=== PATIENT | female | born 1955 | race African-American/Black ===

== ENCOUNTER 2018-04-01 12:29 | Emergency (ER) | payer OTHER ==
[2018-04-01] MEDS ORDERED: Albuterol Sulfate 2.5 mg/0.5 ml Neb ONE ×2 (13:34)
--- NOTE | 2018-04-01 15:57 | RAD ---
CHEST TWO VIEWS: 04/01/18 HISTORY: Cough and congestion. Heart size is within normal limits. Aorta is mildly tortuous. The lungs are clear of infiltrates. No significant bony findings. IMPRESSION: No active intrathoracic disease. POS: [facility]
== END 2018-04-01 15:45 | disposition home or self-care (01) ==
LOC: ERS 12:29
DX: J40 Bronchitis, not specified as acute or chronic (principal); E11.9 Type 2 diabetes mellitus without complications; Z79.4 Long term (current) use of insulin; E78.5 Hyperlipidemia, unspecified; I10 Essential (primary) hypertension; J45.909 Unspecified asthma, uncomplicated
CPT/HCPCS: 71046; 94640; J7611; J7620

== ENCOUNTER 2018-04-24 10:38 | Emergency (ER) | payer OTHER ==
[2018-04-24 11:44] LABS: #Basophils 0.1 thou/uL (0.0-0.2); #Eosinphils 0.2 thou/uL (0.0-0.7); #Lymphocytes 2.1 thou/uL (1.20-3.40); #Monocytes 0.7 thou/uL (0.11-0.59); #Neutrophils 6.4 thou/uL (1.40-6.50); %Basophils 0.6 % (0.0-1.0); %Eosinophils 2.1 % (0.0-10.0); %Lymphocytes 22.4 % (21.0-51.0); %Monocytes 7.6 % (0.0-10.0); %Neutrophils 67.4 % (42.0-75.0); Mean Corpuscular HGB CONC 30.6 g/dL (32.0-36.0); Mean Corpuscular Hemoglobin 23.2 pg (27.0-31.0); Mean Corpuscular Volume 75.9 fL (78.0-98.0); Mean Platelet Volume 12.2 fL (7.4-10.4); Platelet Count 138 thou/uL (130-400); RBC Distribution Width 13.8 % (11.5-14.5); Red Blood Cell (RBC) Count 4.75 mill/uL (4.20-5.40); White Blood Cell (WBC) Count 9.4 thou/uL (4.8-10.8)
--- NOTE | 2018-04-24 11:48 | RAD ---
CHEST TWO VIEWS: History: Cough. Comparison: Radiograph 04-01-18. FINDINGS: Lungs are clear. No pneumothorax or effusion. Cardiac silhouette and mediastinal contours are within normal limits. Mid thoracic spine spondylosis. IMPRESSION: No acute intrathoracic abnormality. POS: [facility]
[2018-04-24 12:04] LABS: ALT (SGPT) 22 U/L (8-55); AST (SGOT) 16 U/L (5-34); Albumin 3.5 g/dL (3.4-4.8); Alkaline Phosphatase 82 U/L (40-150); Anion Gap 12 mmol/L (10-20); BUN (Urea Nitrogen) 19 mg/dL (9.8-20.1); Bilirubin, Total 0.2 mg/dL (0.2-1.2); CK (CPK) 52 U/L (29-168); CKMB 0.8 ng/mL (0-6.6); Calc. Creatinine Clearance 0 mL/min (70-130); Carbon Dioxide 26 mmol/L (23-31); Chloride 102 mmol/L (98-107); Estimated GFR-MDRD 70; Glucose 405 mg/dL (80-115); Potassium 4.2 mmol/L (3.5-5.1); Protein, Total 7.5 g/dL (6.0-8.3); Sodium 136 mmol/L (136-145); Troponin I Less than 0.010 ng/mL (< 0.028)
[2018-04-24 12:10] LABS: Hypochromia MODERATE=16-30 cells (100X) (0-5/hpf); MDiff Complete? YES; Microcytosis SLIGHT = 6-15 cells (100X) (0-5/hpf); PLT Morphology Comment Appears Adequate; Polychromasia SLIGHT = 2-3 cells (100X) (0-2/hpf); Reflex for Review?? NO; Target Cells SLIGHT = 2-5 cells (100X) (0-1/hpf)
[2018-04-24] MEDS ORDERED: methylPREDNISolone Sod Succ/PF 125 MG/2 ML VIAL ONE (12:16)
--- NOTE | 2018-04-24 13:09 | CT ---
CT CHEST WITHOUT CONTRAST: History: Cough, wheezing x 3 weeks. Comparison: None. FINDINGS: Limited evaluation of the mediastinal structures due to lack of IV contrast. No mediastinal mass, lym phadenopathy, or hematoma. Heart size is within normal limits. No significant pericardial fluid. Visu alized axilla and solid organs are unremarkable. Trachea and central bronchi are patent. No masses or consolidation in the lung parenchyma. Minimal ar eas of atelectasis and scarring. No pneumothorax. No significant pleural fluid. There is 4 mm nodule in the right upper lobe. IMPRESSION: Unremarkable noncontrast chest CT. POS: [facility]
== END 2018-04-24 13:14 | disposition home or self-care (01) ==
LOC: ERS 10:38
DX: J20.9 Acute bronchitis, unspecified (principal); J45.909 Unspecified asthma, uncomplicated; E11.9 Type 2 diabetes mellitus without complications; Z79.4 Long term (current) use of insulin; E78.5 Hyperlipidemia, unspecified; I10 Essential (primary) hypertension; Z79.899 Other long term (current) drug therapy
CPT/HCPCS: 36415; 71046; 71250; 80053; 82553; 83880; 84484; 85025; 93005; 94640; 96374; J2930; J7620